=== PATIENT | female | born 1990 | race Caucasian/White ===

== ENCOUNTER 2024-04-13 02:28 | Emergency (ER) | payer OTHER ==
[2024-04-13 02:33] VITALS: RESP 18; TEMP 98; BMI 27.4
[2024-04-13] MEDS ORDERED: ACETAMINOPHEN 500 MG TABLET (FP) ONE (03:09)
[2024-04-13] MEDS: ACETAMINOPHEN 500 MG TABLET (FP) PO ONE (03:10)
[2024-04-13] MEDS ORDERED: IBUPROFEN 400 MG TABLET (FP) PO ONE (03:11)
[2024-04-13] MEDS: IBUPROFEN 400 MG TABLET (FP) PO ONE (03:12)
[2024-04-13] MEDS ORDERED: DIPHTH,PERTUSS(ACELL),TET 0.5 ML DISP.SYRIN IM ONE (03:46)
[2024-04-13] MEDS: DIPHTH,PERTUSS(ACELL),TET 0.5 ML DISP.SYRIN IM ONE (03:49)
[2024-04-13 04:55] VITALS: BP 138/102; PULSE 122
== END 2024-04-13 04:56 | disposition short-term general hospital (02) ==
LOC: JER 02:28
PROC: 3E0234Z Introduction of Serum, Toxoid and Vaccine into Muscle, Percutaneous Approach (ICD-10-PCS; principal; 2024-04-13)
DX: S01.81XA Laceration without foreign body of other part of head, initial encounter (principal); X99.0XXA Assault by sharp glass, initial encounter; Z20.822 Contact with and (suspected) exposure to COVID-19; Z23 Encounter for immunization
CPT/HCPCS: 0241U-QW; 90471; 90715; 99285-25

== ENCOUNTER 2024-10-06 07:06 | Inpatient (IN) | payer OTHER ==
[2024-10-06] MEDS: LACTATED RINGERS SOLUTION 1000 ML INFUS.BAG IV ONE ×4 (08:15→16:20)
[2024-10-06] MEDS ORDERED: FAMOTIDINE 20 MG/50 ML IVPB 20 MG/50 ML MG IVPB ONE (08:17)
[2024-10-06] MEDS ORDERED: ONDANSETRON 4 MG/2 ML VIAL ONE (08:17)
[2024-10-06] MEDS: ONDANSETRON 4 MG/2 ML VIAL IVPB ONE (08:29)
[2024-10-06] MEDS: SODIUM CHLORIDE 0.9% 500 ML INFUS.BAG IV ONE (08:29)
[2024-10-06] MEDS: FAMOTIDINE 20 MG/50 ML IVPB 20 MG/50 ML MG IVPB ONE (08:29)
[2024-10-06 08:36] LABS: VENOUS BASE EXCESS -25.9 mmol/L (-2-2); VENOUS PCO2 25.1 mmHg (38-52)
[2024-10-06 08:37] LABS: VENOUS PH 6.945 (7.310-7.410)
[2024-10-06 08:43] LABS: ABSOLUTE IMMATURE GRANULOCYTES 0.15 x10^3/uL (0.0-0.031); BASOPHILS # 0.05 x10^3/uL (0.01-0.08); EOSINOPHIL % 0.1 % (0.7-5.8); EOSINOPHILS # 0.01 x10^3/uL (0.04-0.36); HEMOGLOBIN 15.8 g/dL (11.2-15.7); MCHC 32.2 g/dl (32.2-35.5); MEAN CELL VOLUME 88.3 fl (79.4-94.8); MEAN PLT VOLUME 10.2 fl (9.4-12.3); MONOCYTE # 0.46 x10^3/uL (0.24-0.86); MONOCYTE % 2.5 % (4.7-12.5); PLATELET COUNT 392 x10^3/uL (182-369); RDW 12.7 % (12.1-16.8)
[2024-10-06] MEDS ORDERED: ACETAMINOPHEN INJECTION 100 ML ONE (08:55)
[2024-10-06] MEDS: ACETAMINOPHEN 1000 MG/100 ML BAG IVPB ONE (09:02)
[2024-10-06 09:04] LABS: CHLORIDE 93 mmol/L (98-107); SODIUM 125 mmol/L (136-145)
[2024-10-06 09:06] LABS: CALCIUM 9.8 mg/dL (8.5-10.1)
[2024-10-06 09:07] LABS: ALBUMIN 4.8 g/dl (3.4-5.0); ANION GAP 26 mmol/L (4-13); BLOOD UREA NITROGEN 22.5 mg/dL (7-18); CO2 5 mmol/L (21-32)
[2024-10-06 09:08] LABS: MAGNESIUM 2.3 mg/dL (1.8-2.4)
[2024-10-06 09:10] LABS: CREATININE 1.9 mg/dL (0.55-1.3); SGOT/AST 22 U/L (15-37); SGPT/ALT 37 U/L (13-61)
[2024-10-06 09:11] LABS: BILIRUBIN,TOTAL 0.5 mg/dL (0.2-1)
[2024-10-06 09:13] LABS: ALK PHOS 116 U/L (45-117)
[2024-10-06 09:22] LABS: GLUCOSE,RANDOM 662 mg/dL (74-106)
[2024-10-06] MEDS ORDERED: INSULIN REGULAR 100 UNITS in SODIUM CHLORIDE 99 ML IVPB SCH (09:30)
[2024-10-06 09:54] LABS: EPI CELLS 31 /uL (0-25.1); HYALINE CASTS 1 /uL (0-3.1); URINE APPEARANCE CLEAR; URINE BACTERIA 207 /uL (0-1359); URINE BILIRUBIN NEGATIVE (NEGATIVE); URINE COLOR YELLOW; URINE GLUCOSE (UA) 3+ (NEGATIVE); URINE KETONE 4+ (NEGATIVE); URINE LEUK ESTERASE NEGATIVE (NEGATIVE); URINE NITRITE NEGATIVE (NEGATIVE); URINE PROTEIN 1+ (NEGATIVE); URINE RBC 15 /uL (0-23.9); URINE UROBILINOGEN 0.2 mg/dL (0.2-1.0); URINE WBC 19 /uL (0-25.8)
[2024-10-06 09:58] LABS: INR 1.07 (0.83-1.09); PROTHROMBIN TIME (PATIENT) 11.7 SEC (9.7-13.0)
[2024-10-06 10:01] LABS: ACTIVATED PTT 30.1 SECONDS (25.2-36.5)
[2024-10-06] MEDS: INSULIN REGULAR 100 UNITS in SODIUM CHLORIDE 99 ML IVPB SCH ×2 (10:34→17:00)
[2024-10-06 10:38] LABS: LACTIC ACID 4.8 mmol/L (0.4-2.0)
[2024-10-06] MEDS ORDERED: MEROPENEM 1 GM VIAL (RESTRICTED TO ID) IVPB ONE (13:00)
[2024-10-06] MEDS: MEROPENEM 1 GM in DEXTROSE 5%-WATER 100 ML IVPB ONE (13:28)
[2024-10-06 14:51] LABS: CHLORIDE 99 mmol/L (98-107); POTASSIUM 4.7 mmol/L (3.5-5.1); SODIUM 128 mmol/L (136-145)
[2024-10-06 14:59] LABS: LACTIC ACID 2.1 mmol/L (0.4-2.0)
[2024-10-06 15:00] VITALS: BMI 23.5
[2024-10-06 15:02] LABS: ANION GAP 23 mmol/L (4-13); BLOOD UREA NITROGEN 24.1 mg/dL (7-18); CO2 6 mmol/L (21-32)
[2024-10-06 15:05] LABS: SGOT/AST 17 U/L (15-37); SGPT/ALT 31 U/L (13-61)
[2024-10-06 15:06] LABS: CREATININE 1.6 mg/dL (0.55-1.3)
[2024-10-06 15:07] LABS: BILIRUBIN,TOTAL 0.5 mg/dL (0.2-1); TOT PROT 7.4 g/dl (6.4-8.2)
[2024-10-06 15:08] LABS: ALK PHOS 97 U/L (45-117)
[2024-10-06 15:18] LABS: GLUCOSE,RANDOM 414 mg/dL (74-106)
[2024-10-06] MEDS: SODIUM CHLORIDE 1,000 ML IV SCH (16:20)
[2024-10-06] MEDS: HEPARIN NA (PORCINE) 5,000 UNITS/ML 1ML VIAL SQ SCH (16:21)
[2024-10-06] MEDS: D5-1/2NS+10 MEQ KCL - 10 MEQ/1,000 ML INFUS.BAG IV SCH (16:40)
[2024-10-06 17:24] LABS: POTASSIUM 4.1 mmol/L (3.5-5.1)
[2024-10-06 17:28] LABS: ALBUMIN 3.9 g/dl (3.4-5.0); BLOOD UREA NITROGEN 20.5 mg/dL (7-18); CALCIUM 8.7 mg/dL (8.5-10.1)
[2024-10-06 17:31] LABS: CREATININE 1.4 mg/dL (0.55-1.3)
[2024-10-06 17:32] LABS: TOT PROT 7.3 g/dl (6.4-8.2)
[2024-10-06 17:33] LABS: BILIRUBIN,TOTAL 0.5 mg/dL (0.2-1)
[2024-10-06 19:44] LABS: POTASSIUM 4.3 mmol/L (3.5-5.1)
[2024-10-06 19:46] LABS: CALCIUM 8.3 mg/dL (8.5-10.1)
[2024-10-06 19:47] LABS: ALBUMIN 3.3 g/dl (3.4-5.0); BLOOD UREA NITROGEN 17.2 mg/dL (7-18)
[2024-10-06 19:50] LABS: CREATININE 1.3 mg/dL (0.55-1.3)
[2024-10-06 19:52] LABS: BILIRUBIN,TOTAL 0.5 mg/dL (0.2-1); TOT PROT 6.5 g/dl (6.4-8.2)
[2024-10-06 20:39] LABS: MAGNESIUM 1.7 mg/dL (1.8-2.4)
[2024-10-06] MEDS: MAGNESIUM SULFATE IN WATER 2 GM/50 ML IVPB IVPB ONE (21:20)
[2024-10-06] MEDS: MUPIROCIN 2% TOPICAL OINTMENT FOR DECOLONIZATION NS SCH (21:20)
[2024-10-06] MEDS: ONDANSETRON 4 MG/2 ML VIAL IVPUSH PRN (21:20)
[2024-10-06] MEDS: CHLORHEXIDINE GLUCONATE 4% CLEANSER FOR DECOLONIZATION TP SCH (21:21)
[2024-10-06 23:51] LABS: CHLORIDE 109 mmol/L (98-107); POTASSIUM 3.8 mmol/L (3.5-5.1); SODIUM 134 mmol/L (136-145)
[2024-10-06 23:52] LABS: CALCIUM 8.4 mg/dL (8.5-10.1)
[2024-10-06 23:53] LABS: ANION GAP 6 mmol/L (4-13); BLOOD UREA NITROGEN 16.2 mg/dL (7-18); CO2 19 mmol/L (21-32); GLUCOSE,RANDOM 221 mg/dL (74-106); MAGNESIUM 2.7 mg/dL (1.8-2.4)
[2024-10-06 23:56] LABS: CREATININE 1.3 mg/dL (0.55-1.3)
[2024-10-07] MEDS: D5-1/2NS+10 MEQ KCL - 10 MEQ/1,000 ML INFUS.BAG IV SCH (00:30)
[2024-10-07 00:54] LABS: PHOSPHOROUS 1.1 mg/dL (2.5-4.9)
[2024-10-07] MEDS: POTASSIUM PHOSPHATE 30 MM in SODIUM CHLORIDE 250 ML IVPB ONE (01:23)
[2024-10-07 04:07] LABS: POTASSIUM 4.1 mmol/L (3.5-5.1)
[2024-10-07 04:09] LABS: CALCIUM 7.9 mg/dL (8.5-10.1)
[2024-10-07 04:10] LABS: MAGNESIUM 2.4 mg/dL (1.8-2.4)
[2024-10-07 04:12] LABS: CREATININE 1.1 mg/dL (0.55-1.3); PHOSPHOROUS 1.5 mg/dL (2.5-4.9)
[2024-10-07 07:05] LABS: ABSOLUTE IMMATURE GRANULOCYTES 0.03 x10^3/uL (0.0-0.031); BASOPHILS # 0.02 x10^3/uL (0.01-0.08); EOSINOPHIL % 0.2 % (0.7-5.8); EOSINOPHILS # 0.02 x10^3/uL (0.04-0.36); HEMATOCRIT 33.5 % (34.1-44.9); HEMOGLOBIN 11.6 g/dL (11.2-15.7); MCHC 34.6 g/dl (32.2-35.5); MEAN CELL VOLUME 81.9 fl (79.4-94.8); MONOCYTE # 0.83 x10^3/uL (0.24-0.86); MONOCYTE % 8.3 % (4.7-12.5); PLATELET COUNT 276 x10^3/uL (182-369); RDW 11.9 % (12.1-16.8)
[2024-10-07 07:26] LABS: POTASSIUM 4.3 mmol/L (3.5-5.1)
[2024-10-07 07:29] LABS: CALCIUM 7.9 mg/dL (8.5-10.1)
[2024-10-07 07:30] LABS: BLOOD UREA NITROGEN 12.5 mg/dL (7-18); MAGNESIUM 2.2 mg/dL (1.8-2.4)
[2024-10-07 07:33] LABS: CREATININE 1.1 mg/dL (0.55-1.3); PHOSPHOROUS 3.1 mg/dL (2.5-4.9)
[2024-10-07] MEDS: ACETAMINOPHEN 325 MG TABLET (FP) PO PRN (08:29)
[2024-10-07 09:59] VITALS: RESP 18
[2024-10-07] MEDS: INSULIN GLARGINE (LANTUS) 100 UNITS/ML UNITS SQ SCH ×2 (11:28→21:35)
[2024-10-07] MEDS: MEROPENEM 1 GM in DEXTROSE 5%-WATER 100 ML IVPB SCH (14:30)
[2024-10-07] MEDS: LACTATED RINGERS SOLUTION 1,000 ML/1,000 ML INFUS.BAG IV SCH (17:54)
[2024-10-07] MEDS: INSULIN ASPART SLIDING SCALE (NOVOLOG) 1 VIAL SQ SCH ×2 (17:55→21:35)
[2024-10-07] MEDS ORDERED: ACETAMINOPHEN 325 MG TABLET (FP) PO PRN (18:14)
[2024-10-07] MEDS: ONDANSETRON 4 MG/2 ML VIAL IVPUSH PRN (19:55)
[2024-10-07] MEDS: HEPARIN NA (PORCINE) 5,000 UNITS/ML 1ML VIAL SQ SCH (21:36)
[2024-10-07] MEDS: FAMOTIDINE 20 MG/50 ML IVPB 20 MG/50 ML MG IVPB ONE (21:39)
[2024-10-07] MEDS ORDERED: CHLORHEXIDINE GLUCONATE 4% CLEANSER FOR DECOLONIZATION TP SCH (22:00)
[2024-10-07] MEDS ORDERED: MUPIROCIN 2% TOPICAL OINTMENT FOR DECOLONIZATION NS SCH (22:00)
[2024-10-08] MEDS: INSULIN GLARGINE (LANTUS) 100 UNITS/ML UNITS SQ SCH (06:12)
[2024-10-08] MEDS: INSULIN ASPART SLIDING SCALE (NOVOLOG) 1 VIAL SQ SCH (06:13)
[2024-10-08 09:05] LABS: HEMATOCRIT 33.7 % (34.1-44.9); HEMOGLOBIN 11.4 g/dL (11.2-15.7); MCHC 33.8 g/dl (32.2-35.5); MEAN PLT VOLUME 9.7 fl (9.4-12.3); PLATELET COUNT 232 x10^3/uL (182-369); RDW 12.7 % (12.1-16.8)
[2024-10-08 09:27] LABS: POTASSIUM 3.5 mmol/L (3.5-5.1)
[2024-10-08 09:37] LABS: CALCIUM 8.6 mg/dL (8.5-10.1)
[2024-10-08 09:38] LABS: BLOOD UREA NITROGEN 10.5 mg/dL (7-18); MAGNESIUM 2.2 mg/dL (1.8-2.4)
[2024-10-08 09:41] LABS: CREATININE 0.8 mg/dL (0.55-1.3); PHOSPHOROUS 1.3 mg/dL (2.5-4.9)
[2024-10-08 09:42] LABS: BILIRUBIN,TOTAL 0.6 mg/dL (0.2-1)
[2024-10-08 09:46] LABS: TOT PROT 5.8 g/dl (6.4-8.2)
[2024-10-08] MEDS: NAPH,MB-DB/K PH,MBDB POWDER PACKET PO SCH (10:36)
[2024-10-08 13:34] VITALS: BP 115/91; PULSE 58; TEMP 98.4
[2024-10-08] MEDS: POTASSIUM PHOSPHATE 30 MM in DEXTROSE 5%-WATER - 500 ML IVPB ONE (14:01)
== END 2024-10-08 14:39 | disposition home or self-care (01) | DRG 420 ==
LOC: JER 07:06 → JERBED 10:03 → JICU 14:29 → J5S 10-07 17:10
PROVIDERS: ADMIT Internal Medicine Pulmonary Disease; ATTEND Internal Medicine
PROC: 05HM33Z Insertion of Infusion Device into Right Internal Jugular Vein, Percutaneous Approach (ICD-10-PCS; principal; 2024-10-06)
DX: E10.10 Type 1 diabetes mellitus with ketoacidosis without coma (principal); E87.5 Hyperkalemia; R00.0 Tachycardia, unspecified; E87.1 Hypo-osmolality and hyponatremia; N17.9 Acute kidney failure, unspecified; D72.829 Elevated white blood cell count, unspecified; E83.42 Hypomagnesemia; E83.39 Other disorders of phosphorus metabolism; K52.9 Noninfective gastroenteritis and colitis, unspecified; F17.210 Nicotine dependence, cigarettes, uncomplicated
CPT/HCPCS: 0241U-QW; 36415; 71045-TC-FY; 80048; 80053; 81003; 82010; 82803; 82962; 83036; 83605; 83690; 83735; 84100; 84484; 84703; 85025; 85027; 85610; 85730; 86850; 86900; 86901; 87040; 87086; 93005; 93010; 97116-GP; 97161-GP; 99291; J0131; J1644